=== PATIENT | female | born 1975 | race Hispanic/Latino ===

== ENCOUNTER 2020-09-27 10:09 | Outpatient (CLI) | payer BC, OTHER ==
--- NOTE | 2020-09-27 12:41 | Magnetic Resonance Report ---
MRI BREAST BILATERAL WITH AND WITHOUT CONTRAST, 09/27/2020 CLINICAL INFORMATION / INDICATION: DISORDER OF BREAST/ABNORMAL MAMMO. Patient presents for high-risk screening breast MRI secondary to family history of breast cancer. Patient also has probably benign n odules in both breasts seen on outside mammogram and ultrasound. TECHNIQUE: Axial T1 and T2-weighted fat sat images were obtained precontrast. Gadolinium-based contra st was injected intravenously and serial axial T1 weighted images with fat saturation were obtained. 3-D MIP projections, kinetic analysis, and subtraction imaging were utilized to evaluate. A dedicated 8-channel breast coil was used for image acquisition. COMPARISON: None available FINDINGS: IMPLANTS: There are bilateral retropectoral silicone implants which appear intact. BREAST DENSITY: There are scattered areas of fibroglandular density. BACKGROUND ENHANCEMENT: Moderate background enhancement within both breasts. RIGHT BREAST: No dominant mass or suspicious area of enhancement in the right breast. There is a 9 mm benign simple cyst seen in the upper outer quadrant of the right breast, middle depth. LEFT BREAST: No dominant mass or suspicious area of enhancement in the left breast. AXILLAE: No pathologically enlarged axillary lymph nodes. ADDITIONAL FINDINGS: Limited imaging of the thorax and upper abdomen demonstrates no focal abnormalit y. IMPRESSION: 1. No suspicious MRI abnormality identified in either breast. Specifically, there is no MRI abnormali ty to correspond with the probably benign nodules described on outside mammogram and ultrasound, sugg esting a benign etiology. Follow up recommendation: Back to schedule. BI-RADS Category 2: Benign. Signer Name: Angi Juan MD Signed: 09/27/2020 12:22 PM Workstation Name: [id number]
== END 2020-09-27 10:10 | disposition home or self-care (01) ==
LOC: SPVIMAG 10:09
PROVIDERS: ATTEND Surgery
DX: N60.01 Solitary cyst of right breast (principal); N64.9 Disorder of breast, unspecified; R92.8 Other abnormal and inconclusive findings on diagnostic imaging of breast; Z80.3 Family history of malignant neoplasm of breast
CPT/HCPCS: A9575; C8908; 77049